=== PATIENT | male | born 1995 | race Caucasian/White ===

== ENCOUNTER → 2017-11-11 | Outpatient (CLI) | payer OTHER ==
[~2017-11-11] MED LIST: METHACHOLINE KIT (J7674) INH
== END ==
LOC: M CARPUL 09:25
DX: R06.02 Shortness of breath (principal)
CPT/HCPCS: J7674

== ENCOUNTER → 2019-02-05 | Outpatient (CLI) | payer OTHER ==
[~2019-02-05] MED LIST changes: +GASTROGRAFIN SOLUTION 30ML (Q9963) As Ordered ONE; +ISOVUE-370 76% 100ML VIAL (Q9967) As Ordered ONE; -METHACHOLINE KIT (J7674) INH
--- NOTE | 2019-02-05 16:23 | REP ---
Clinical: Generalized abdominal pain. Technique: Axial contrast enhanced images from the lung bases to the pubic symphysis using oral (per protocol) and 100 ml Isovue 370 intravenous contrast material with coronal and sagittal re-formations. Findings: Lung bases are clear. Visualized heart and pericardium normal. Liver, spleen, pancreas, gallbladder, bilateral adrenal glands and kidneys are normal. The enteric system is without obstruction or acute inflammatory process. No old terminal ileum and appendix identified in the right lower quadrant. Colonic and sigmoid diverticulosis noted without acute diverticulitis. Pelvis demonstrates normal bladder and age appropriate prostate/seminal vesicles. No pelvic fluid. No ascites. No free air. No adenopathy. Abdominal aorta and vasculature appears normal. Surrounding musculoskeletal structures are normal. Impression: 1. No acute abdominopelvic pathology appreciated. 2. Scattered sigmoid diverticula without acute diverticulitis. Electronically Signed by Thierno Atkins MD 02/05/2019 04:15 P
== END ==
LOC: M RAD 13:34
PROVIDERS: ATTEND Physician Assistant
DX: R10.9 Unspecified abdominal pain (principal); K57.32 Diverticulitis of large intestine without perforation or abscess without bleeding
CPT/HCPCS: 74177; Q9963; Q9967